=== PATIENT | female | born 1995 | race Caucasian/White ===

== ENCOUNTER → 2017-02-06 | Day surgery (SDC) | payer BC, OTHER ==
[~2017-02-06] VITALS: Ht 154.9 cm; Wt 63.8 kg
[~2017-02-06] MED LIST: AMPICILLIN IV 2,000 MG in SODIUM CHLOR 0.9% AD-VAN 100ML 100 ML IV SCH; CLOB-65 EXT; CLOB0.0510 TOP; DOXY1SUS PO; FLUO0.0121; FLUO0.0121 TOP; LAMO150T32 PO; [UNRECOGNIZED DRUG - CODE] PO; [UNRECOGNIZED DRUG - OTHER] TOP
[2017-02-06 10:24] VITALS: BP 118/79; PULSE 74; TEMP 36.2; O2SAT 99; Ht 154.9 cm; Wt 63.8 kg
== END | disposition home or self-care (01) ==
LOC: C.MTU 10:14
PROVIDERS: ATTEND Internal Medicine
DX: Q23.0 Congenital stenosis of aortic valve (principal); I33.0 Acute and subacute infective endocarditis

== ENCOUNTER → 2017-05-23 | Outpatient (CLI) | payer BC, OTHER ==
[~2017-05-23] MED LIST changes: -AMPICILLIN IV 2,000 MG in SODIUM CHLOR 0.9% AD-VAN 100ML 100 ML IV SCH; -CLOB-65 EXT; -CLOB0.0510 TOP; -FLUO0.0121; -FLUO0.0121 TOP; +LAMO150T PO; -LAMO150T32 PO; -[UNRECOGNIZED DRUG - CODE] PO; -[UNRECOGNIZED DRUG - OTHER] TOP
[2017-05-23 15:37] LABS: BASO % 0.2 %; BASO ABS # 0.01 K/uL (0-0.2); COMPLETE YES; EOS % 0.8 %; LYMPH ABS # 2.19 K/uL (1.2-3.4); MEAN CELL VOLUME 92.1 fL (80-100); MEAN CORPUSCULAR HEMOGLOBIN 30.6 pg (25-34); MEAN CORPUSCULAR HGB CONC 33.3 g/dl (32-36); MEAN PLATELET VOLUME 11.7 fL (7.4-10.4); MONO % 7.7 %; NEUT % 55.3 %; PLATELET COUNT 214 K/uL (130-400); RED BLOOD COUNT 4.67 M/uL (4.2-5.4); WHITE BLOOD COUNT 6.08 K/uL (4.8-10.8)
[2017-05-23 15:45] LABS: ALT/SGPT 25 U/L (12-78); AST/SGOT 15 U/L (15-37); BLOOD UREA NITROGEN 18 mg/dl (7-18); BUN/CREATININE RATIO 23.8 (10-20); CALCIUM 9.5 mg/dl (8.5-10.1); CARBON DIOXIDE 28 mmol/L (21-32); CHLORIDE 104 mmol/L (98-107); CREATININE 0.75 mg/dl (0.60-1.20); GLUCOSE 80 mg/dl (70-99); SODIUM 137 mmol/L (136-145)
[2017-05-23 15:47] LABS: ALB/GLOB RATIO 1.3 (0.9-2); ALKALINE PHOSPHATASE 70 U/L (45-117)
== END | disposition home or self-care (01) ==
LOC: C.LABBC 10:46
PROVIDERS: ATTEND Psychiatry & Neurology Neurology
DX: G40.209 Localization-related (focal) (partial) symptomatic epilepsy and epileptic syndromes with complex partial seizures, not intractable, without status epilepticus (principal)